=== PATIENT | female | born 1975 | race Caucasian/White ===

== ENCOUNTER 2020-05-06 16:47 | Emergency (ER) | payer OTHER ==
[~2020-05-06] VITALS: Ht 162.5 cm; Wt 106.6 kg
[~2020-05-06 16:47] MED LIST: MOTRIN800 MG PO; VICODIN ES 7501 TAB PO
[2020-05-06] MEDS ORDERED: KEFLEX500 M1 PO (18:50)
== END 2020-05-06 18:51 | disposition home or self-care (01) ==
LOC: ED 16:47
DX: S61.306A Unspecified open wound of right little finger with damage to nail, initial encounter (principal); Z88.1 Allergy status to other antibiotic agents; W23.0XXA Caught, crushed, jammed, or pinched between moving objects, initial encounter; Y93.89 Activity, other specified; Y92.34 Swimming pool (public) as the place of occurrence of the external cause; Y99.8 Other external cause status